=== PATIENT | male | born 1945 | race Caucasian/White ===

== ENCOUNTER 2021-05-08 16:20 | Inpatient (IN) ==
[2021-05-08] MEDS ORDERED: SODIUM CHLORIDE 0.9% 1000ML 1,000 ML IV ONE (20:36)
--- NOTE | 2021-05-08 20:38 | Emergency Department Note ---
Impression & Plan Pneumonia due to 2019 novel coronavirus, Hypoxia ED Provider Note NAME: JAH KEATING AGE: 76 SEX: M : 1945 ARRIVES VIA: Walk-IN INFORMANT: Patient ED PROVIDER(S): Reece Rosa DO CHIEF COMPLAINT: Falls, blurry vision and fevers HPI: Patient is a 69-year-old man who is legally blind and presents to the ER for decrease in his vision out of his right eye. He has been unable to see out of his left eye his entire life. He notes that with this he is feeling very weak. He had a fever this morning of 101. He did have a headache yesterday but has not had any since then. No headache currently. No chest pain or shortness of breath. notes that he does have a cough but he denies this. Denies any belly pain, nausea, vomiting, or diarrhea. He notes that he is not hungry and has not been eating. No dysuria, urgency, or frequency. No other exacerbating or remitting factors. ROS: See above HPI for pertinent positives & negatives. A total of 10 systems reviewed and were otherwise negative. PAST MEDICAL HISTORY:See Below PAST SURGICAL HISTORY:See Below FAMILY HISTORY:See Below SOCIAL HISTORY:See Below HOME MEDICATIONS:See Below ALLERGIES:See Below VITALS:See Below PHYSICAL EXAMINATION: GENERAL: Sitting up in bed, alert, chronically ill appearing, disheveled, non- toxic, intermittent cough EYE EXAM: Left eye opacified and slightly protruding. Right eye pupil is round and reactive OROPHARYNX: no exudate, no erythema, lips, buccal mucosa, and tongue normal and mucous membranes are moist NECK: supple, no nuchal rigidity, no adenopathy, non-tender LUNGS: Clear to auscultation. Normal chest wall mechanics HEART: no murmurs, S1 normal and S2 normal ABDOMEN: abdomen soft, non-tender, normo-active bowel sounds, no masses, no rebound or guarding. UPPER EXTREMITIES: upper extremities are grossly normal. LOWER EXTREMITIES: No pitting edema. NEURO EXAM: Normal sensorium, cranial nerves II-XII grossly intact, normal speech, no gross weakness of arms, no gross weakness of legs. MEDICAL DECISION MAKING: Patient is a 76-year-old male who presents the ER for above-stated complaint. IV was established blood work was obtained. Labs show no significant ptosis or knee. INR unremarkable. BMP the with a slightly elevated glucose. LFTs has been in part of her neck. Pro-Alvin was normal UA was added. Lyme was negative. Covid positive. Chest x-ray with infiltrates in the bases. With ambulation he drops down to 88 to 89%. Given fluids and Decadron. Discussed with the hospitalist admitted for further work-up. CT head was performed due to the decrease in vision. Triage Nursing notes reviewed. Limited review of prior medical records performed Vital Signs: reviewed and remarkable for no significant abnormalities Differential diagnosis: Differential diagnosis includes etiologies such as sepsis, UTI, pneumonia, metabolic, electrolyte abnormalities, cardiac sources, intracerebral event, toxicologic, neurological, as well as others were entertained. ER treatment provided: See below Diagnostics interpreted by me: ECG: Sinus rhythm rate of 93 Normal axis No PVCs QTC 445 Cardiac Monitoring: An order was placed for continuous cardiac monitoring. The monitor shows a rate of 92 with sinus rhythm. Laboratory studies: As stated above and show below. Imaging studies: CT head negative Chest x-ray with lower lobe infiltrates Consultation(s): Discussed with Carlyn Tomlinson for further evaluation Procedures: none Critical Care: None Past Med/Surg History Social History Smoking Status: Never smoker Feels Safe at Home: Yes Allergies Allergies Allergy/AdvReac Type Severity Reaction Status Date / Time No Known Allergies Allergy Unverified 05/08/21 20:41 Home Meds Home Medications Medication Instructions Recorded Confirmed brimonidine 0.2 % eye drops 1 drp OPR TID 05/08/21 05/08/21 dorzolamide 22.3 mg-timolol 6.8 1 drp OPR BID 05/08/21 05/08/21 mg/mL eye drops latanoprost 0.005 % eye drops 1 drp OPR HS 05/08/21 05/08/21 Results & Data (ED) Vital Signs Vital Signs - 24 hr 05/08/21 16:39 05/08/21 18:29 05/08/21 20:09 Temperature 37.0 C 37.1 C Temperature Source Skin Oral Pulse Rate 110 H 94 H Pulse Rate [Exercises] Pulse Rate [Right Finger] 93 H Pulse Rate from SpO2 Sensor Respiratory Rate 18 20 22 Respiratory Rate [Exercises] Respiratory Effort / Characteristics Non-Labored Respiratory Pattern Regular Blood Pressure 136/82 150/83 H Blood Pressure [Right Arm] 150/83 H Blood Pressure Mean 100 105 Blood Pressure Mean [Right Arm] 105 Blood Pressure Position [Right Arm] Lying Pulse Oximetry 93 92 Pulse Oximetry [Exercises] Oxygen Delivery Method Room Air Room Air Sepsis Recent Fever Within 48 Hours Yes Sepsis New/Unexplained Change in Mental Status No Sepsis Action Taken by Nursing No Action Required 05/08/21 20:32 05/08/21 20:36 05/08/21 20:45 Temperature 37.1 C Temperature Source Oral Pulse Rate 95 H 97 H 92 H Pulse Rate [Exercises] Pulse Rate [Right Finger] 94 H Pulse Rate from SpO2 Sensor Respiratory Rate 27 H 19 18 Respiratory Rate [Exercises] Respiratory Effort / Characteristics Non-Labored Respiratory Pattern Blood Pressure Blood Pressure [Right Arm] 152/84 H Blood Pressure Mean Blood Pressure Mean [Right Arm] 106 Blood Pressure Position [Right Arm] Pulse Oximetry 91 Pulse Oximetry [Exercises] Oxygen Delivery Method Room Air Sepsis Recent Fever Within 48 Hours Sepsis New/Unexplained Change in Mental Status Sepsis Action Taken by Nursing 05/08/21 21:00 05/08/21 21:06 05/08/21 21:15 Temperature Temperature Source Pulse Rate Pulse Rate [Exercises] Pulse Rate [Right Finger] Pulse Rate from SpO2 Sensor Respiratory Rate 24 19 Respiratory Rate [Exercises] Respiratory Effort / Characteristics Non-Labored Respiratory Pattern Blood Pressure Blood Pressure [Right Arm] Blood Pressure Mean Blood Pressure Mean [Right Arm] Blood Pressure Position [Right Arm] Pulse Oximetry 91 Pulse Oximetry [Exercises] Oxygen Delivery Method Room Air Sepsis Recent Fever Within 48 Hours Sepsis New/Unexplained Change in Mental Status Sepsis Action Taken by Nursing 05/08/21 21:30 05/08/21 21:45 05/08/21 22:00 Temperature Temperature Source Pulse Rate 99 H 97 H 92 H Pulse Rate [Exercises] Pulse Rate [Right Finger] Pulse Rate from SpO2 Sensor 99 H 96 H 89 Respiratory Rate 19 25 H 22 Respiratory Rate [Exercises] Respiratory Effort / Characteristics Non-Labored Respiratory Pattern Blood Pressure 142/78 H 153/75 H 141/63 H Blood Pressure [Right Arm] Blood Pressure Mean 99 101 89 Blood Pressure Mean [Right Arm] Blood Pressure Position [Right Arm] Pulse Oximetry 92 90 92 Pulse Oximetry [Exercises] Oxygen Delivery Method Room Air Sepsis Recent Fever Within 48 Hours Sepsis New/Unexplained Change in Mental Status Sepsis Action Taken by Nursing 05/08/21 22:15 05/08/21 22:30 05/08/21 22:35 Temperature Temperature Source Pulse Rate 91 H Pulse Rate [Exercises] Pulse Rate [Right Finger] Pulse Rate from SpO2 Sensor 92 H 96 H Respiratory Rate 23 Respiratory Rate [Exercises] Respiratory Effort / Characteristics Non-Labored Respiratory Pattern Blood Pressure 141/72 H Blood Pressure [Right Arm] Blood Pressure Mean 95 Blood Pressure Mean [Right Arm] Blood Pressure Position [Right Arm] Pulse Oximetry 91 92 Pulse Oximetry [Exercises] Oxygen Delivery Method Sepsis Recent Fever Within 48 Hours Sepsis New/Unexplained Change in Mental Status Sepsis Action Taken by Nursing 05/08/21 22:45 05/08/21 23:00 05/08/21 23:15 Temperature Temperature Source Pulse Rate 96 H 89 88 Pulse Rate [Exercises] Pulse Rate [Right Finger] Pulse Rate from SpO2 Sensor 96 H 90 86 Respiratory Rate 23 23 28 H Respiratory Rate [Exercises] Respiratory Effort / Characteristics Labored Respiratory Pattern Blood Pressure 148/90 H 145/114 H 163/71 H Blood Pressure [Right Arm] Blood Pressure Mean 109 124 101 Blood Pressure Mean [Right Arm] Blood Pressure Position [Right Arm] Pulse Oximetry 92 91 90 Pulse Oximetry [Exercises] Oxygen Delivery Method Sepsis Recent Fever Within 48 Hours Sepsis New/Unexplained Change in Mental Status Sepsis Action Taken by Nursing 05/08/21 23:30 05/08/21 23:45 Temperature Temperature Source Pulse Rate 89 Pulse Rate [Exercises] 114 H Pulse Rate [Right Finger] Pulse Rate from SpO2 Sensor 90 Respiratory Rate 31 H Respiratory Rate [Exercises] 22 Respiratory Effort / Characteristics Labored Respiratory Pattern Blood Pressure 147/84 H Blood Pressure [Right Arm] Blood Pressure Mean 105 Blood Pressure Mean [Right Arm] Blood Pressure Position [Right Arm] Pulse Oximetry 89 L Pulse Oximetry [Exercises] 89 L Oxygen Delivery Method Room Air Sepsis Recent Fever Within 48 Hours Sepsis New/Unexplained Change in Mental Status Sepsis Action Taken by Nursing Laboratory Data Result diagrams: 05/08/21 21:45 05/08/21 21:45 Lab Results 05/08/21 05/08/21 05/08/21 Range/Units 21:45 21:45 21:45 WBC 8.66 (4.8-10.8) K/uL RBC 5.01 (4.7-6.1) M/uL Hgb 15.6 (14.0-18.0) g/dL Hct 47.1 (42-52) % MCV 94.0 (80-100) fL MCH 31.1 (25-34) pg MCHC 33.1 (32-36) g/dL RDW Std Deviation 48.2 H (36.4-46.3) fL RDW Coeff of Татьяна 14.1 (11.5-14.5) % Plt Count 218 (130-400) K/uL MPV 9.2 (7.4-10.4) fL Immature Gran % (Auto) 0.1 % Neut % (Auto) 86.9 % Lymph % (Auto) 8.8 % [place] % (Auto) 4.2 % Eos % (Auto) 0.0 % Baso % (Auto) 0.0 % Neut # (Auto) 7.53 H (1.4-6.5) K/uL Lymph # (Auto) 0.76 L (1.2-3.4) K/uL [place] # (Auto) 0.36 (0.11-0.59) K/uL Eos # (Auto) 0.00 (0-0.5) K/uL Baso # (Auto) 0.00 (0-0.2) K/uL Immature Gran # (Auto) 0.01 (0.00-0.02) K/uL PT 11.5 (9.0-12.0) Seconds INR 1.1 (0.9-1.1) APTT 33.3 H (21.0-31.0) Seconds PTT Ratio 1.3 Sodium 139 (136-145) mmol/L Potassium 3.7 (3.5-5.1) mmol/L Chloride 105 (98-107) mmol/L Carbon Dioxide 24 (21-32) mmol/L Anion Gap 9.0 (3-11) BUN 29 H (7-18) mg/dl Creatinine 0.97 (0.6-1.4) mg/dl Est Cr Clr Drug Dosing 59.6 ml/min Est GFR ( Amer) 86.9 ml/min Est GFR (Non-Af Amer) 75.0 ml/min BUN/Creatinine Ratio 30.3 H (10-20) Glucose 124 H (70-99) mg/dl Lactate (0.4-2.0) mmol/L Calcium 9.0 (8.5-10.1) mg/dl Magnesium 2.2 (1.8-2.4) mg/dl Total Bilirubin 0.7 (0.2-1) mg/dl AST 20 (15-37) U/L ALT 10 L (12-78) U/L Alkaline Phosphatase 55 (45-117) U/L Troponin I < 0.015 (0-0.045) ng/ml Total Protein 7.1 (6.4-8.2) gm/dl Albumin 2.8 L (3.4-5.0) gm/dl Globulin 4.3 H (2.5-4.0) gm/dl Albumin/Globulin Ratio 0.7 L (0.9-2) Procalcitonin (0-0.5) ng/ml Urine Color Urine Appearance (Clear) Urine pH (4.5-7.5) Ur Specific [place] (1.000-1.030) Urine Protein (Negative) Urine Glucose (UA) (Negative) Urine Ketones (Negative) Urine Blood (Negative) Urine Nitrite (Negative) Urine Bilirubin (Negative) Urine Urobilinogen (Negative) Ur Leukocyte Esterase (Negative) Urine WBC (Auto) (0-5) /hpf Urine RBC (Auto) (0-4) /hpf U Hyaline Cast (Auto) (0-5) /lpf U Epithel Cells (Auto) (0-5) /lpf Urine Bacteria (Auto) (Negative) Granular Casts (0) /lpf Urine Mucus (None Prsent) Urine Yeast Lyme Disease IgG Ab (Negative) Lyme Disease IgM Ab (Negative) COVID-19 Eval Order SARS-CoV-2 (PCR) (Negative) 05/08/21 05/08/21 05/08/21 Range/Units 21:45 21:45 22:07 WBC (4.8-10.8) K/uL RBC (4.7-6.1) M/uL Hgb (14.0-18.0) g/dL Hct (42-52) % MCV (80-100) fL MCH (25-34) pg MCHC (32-36) g/dL RDW Std Deviation (36.4-46.3) fL RDW Coeff of Татьяна (11.5-14.5) % Plt Count (130-400) K/uL MPV (7.4-10.4) fL Immature Gran % (Auto) % Neut % (Auto) % Lymph % (Auto) % [place] % (Auto) % Eos % (Auto) % Baso % (Auto) % Neut # (Auto) (1.4-6.5) K/uL Lymph # (Auto) (1.2-3.4) K/uL [place] # (Auto) (0.11-0.59) K/uL Eos # (Auto) (0-0.5) K/uL Baso # (Auto) (0-0.2) K/uL Immature Gran # (Auto) (0.00-0.02) K/uL PT (9.0-12.0) Seconds INR (0.9-1.1) APTT (21.0-31.0) Seconds PTT Ratio Sodium (136-145) mmol/L Potassium (3.5-5.1) mmol/L Chloride (98-107) mmol/L Carbon Dioxide (21-32) mmol/L Anion Gap (3-11) BUN (7-18) mg/dl Creatinine (0.6-1.4) mg/dl Est Cr Clr Drug Dosing ml/min Est GFR ( Amer) ml/min Est GFR (Non-Af Amer) ml/min BUN/Creatinine Ratio (10-20) Glucose (70-99) mg/dl Lactate 1.8 (0.4-2.0) mmol/L Calcium (8.5-10.1) mg/dl Magnesium (1.8-2.4) mg/dl Total Bilirubin (0.2-1) mg/dl AST (15-37) U/L ALT (12-78) U/L Alkaline Phosphatase (45-117) U/L Troponin I (0-0.045) ng/ml Total Protein (6.4-8.2) gm/dl Albumin (3.4-5.0) gm/dl Globulin (2.5-4.0) gm/dl Albumin/Globulin Ratio (0.9-2) Procalcitonin 0.07 (0-0.5) ng/ml Urine Color Urine Appearance (Clear) Urine pH (4.5-7.5) Ur Specific [place] (1.000-1.030) Urine Protein (Negative) Urine Glucose (UA) (Negative) Urine Ketones (Negative) Urine Blood (Negative) Urine Nitrite (Negative) Urine Bilirubin (Negative) Urine Urobilinogen (Negative) Ur Leukocyte Esterase (Negative) Urine WBC (Auto) (0-5) /hpf Urine RBC (Auto) (0-4) /hpf U Hyaline Cast (Auto) (0-5) /lpf U Epithel Cells (Auto) (0-5) /lpf Urine Bacteria (Auto) (Negative) Granular Casts (0) /lpf Urine Mucus (None Prsent) Urine Yeast Lyme Disease IgG Ab Negative (Negative) Lyme Disease IgM Ab Negative (Negative) COVID-19 Eval Order Covid19 at [facility] SARS-CoV-2 (PCR) (Negative) 05/08/21 05/08/21 Range/Units 22:07 22:55 WBC (4.8-10.8) K/uL RBC (4.7-6.1) M/uL Hgb (14.0-18.0) g/dL Hct (42-52) % MCV (80-100) fL MCH (25-34) pg MCHC (32-36) g/dL RDW Std Deviation (36.4-46.3) fL RDW Coeff of Татяьна (11.5-14.5) % Plt Count (130-400) K/uL MPV (7.4-10.4) fL Immature Gran % (Auto) % Neut % (Auto) % Lymph % (Auto) % [place] % (Auto) % Eos % (Auto) % Baso % (Auto) % Neut # (Auto) (1.4-6.5) K/uL Lymph # (Auto) (1.2-3.4) K/uL [place] # (Auto) (0.11-0.59) K/uL Eos # (Auto) (0-0.5) K/uL Baso # (Auto) (0-0.2) K/uL Immature Gran # (Auto) (0.00-0.02) K/uL PT (9.0-12.0) Seconds INR (0.9-1.1) APTT (21.0-31.0) Seconds PTT Ratio Sodium (136-145) mmol/L Potassium (3.5-5.1) mmol/L Chloride (98-107) mmol/L Carbon Dioxide (21-32) mmol/L Anion Gap (3-11) BUN (7-18) mg/dl Creatinine (0.6-1.4) mg/dl Est Cr Clr Drug Dosing ml/min Est GFR ( Amer) ml/min Est GFR (Non-Af Amer) ml/min BUN/Creatinine Ratio (10-20) Glucose (70-99) mg/dl Lactate (0.4-2.0) mmol/L Calcium (8.5-10.1) mg/dl Magnesium (1.8-2.4) mg/dl Total Bilirubin (0.2-1) mg/dl AST (15-37) U/L ALT (12-78) U/L Alkaline Phosphatase (45-117) U/L Troponin I (0-0.045) ng/ml Total Protein (6.4-8.2) gm/dl Albumin (3.4-5.0) gm/dl Globulin (2.5-4.0) gm/dl Albumin/Globulin Ratio (0.9-2) Procalcitonin (0-0.5) ng/ml Urine Color Dark Yellow Urine Appearance Clear (Clear) Urine pH 5.5 (4.5-7.5) Ur Specific [place] 1.030 (1.000-1.030) Urine Protein 2+ H (Negative) Urine Glucose (UA) Negative (Negative) Urine Ketones 2+ H (Negative) Urine Blood Negative (Negative) Urine Nitrite Negative (Negative) Urine Bilirubin Negative (Negative) Urine Urobilinogen Negative (Negative) Ur Leukocyte Esterase Trace H (Negative) Urine WBC (Auto) 1-5 (0-5) /hpf Urine RBC (Auto) 0-4 (0-4) /hpf U Hyaline Cast (Auto) 5-10 H (0-5) /lpf U Epithel Cells (Auto) 20-30 H (0-5) /lpf Urine Bacteria (Auto) 1+ H (Negative) Granular Casts 1-5 H (0) /lpf Urine Mucus Present A (None Prsent) Urine Yeast Not Reportable Lyme Disease IgG Ab (Negative) Lyme Disease IgM Ab (Negative) COVID-19 Eval Order SARS-CoV-2 (PCR) POSITIVE A* (Negative) Administered Medications Discontinued Medications Dexamethasone Sodium Phosphate (DexamethasonePf 10 Mg/Ml Vial) 6 mg IV NOW ONE Stop: 05/08/21 23:47 Last Admin: 05/09/21 00:02 Dose: 6 mg Documented by: [id number] Sodium Chloride (Nss 1000ml) 1,000 mls @ 999 mls/hr IV .Q1H1M ONE Stop: 05/08/21 21:36 Last Infusion: 05/08/21 22:24 Dose: 0 mls/hr Documented by: [id number] Admin: 05/08/21 21:15 Dose: 999 mls/hr Documented by: [id number] Imaging Data Radiologist's Impression: Chest X-Ray 05/08/21 20:36 SINGLE VIEW CHEST CLINICAL HISTORY: Sepsis. FINDINGS: An AP, portable, upright chest radiograph is compared to study dated 09/05/2013. The heart is mildly enlarged noting atherosclerotic calcification of the thoracic aorta. The pulmonary vasculature is noncongested. Airspace opacities are present at both lung bases. No large pleural effusion or pneumothorax is identified. The skeletal structures are osteopenic. The bony thorax is grossly intact. IMPRESSION: 1. Bibasilar airspace opacities could represent linear scarring/atelectasis versus an infectious/inflammatory pneumonitis. Clinical correlation will be r equired. 2. Cardiomegaly without radiographic evidence of congestive failure. ACT 112: Negative or not required by law. Electronically signed by: Vicente Duval M.D. 05/08/2021 9:05 PM Discharge Plan Visit Data Chief Complaint: Fever Stated Complaint: FEVER, PULSE 101, O2 92-94, COUGH, WEAKNESS ED Provider: Reece Rosa Discharge Problem: Pneumonia due to 2019 novel coronavirus, Hypoxia Forms Stand Alone Forms: My [facility] Prescriptions Prescriptions: No Action latanoprost 0.005 % drops 1 drp OPR HS RF: 0 brimonidine 0.2 % drops 1 drp OPR TID RF: 0 dorzolamide-timolol 22.3-6.8 mg/mL drops 1 drp OPR BID RF: 0 Referrals Referrals: [facility] [Non-Staff] -
--- NOTE | 2021-05-08 21:06 | XRay Report ---
SINGLE VIEW CHEST CLINICAL HISTORY: Sepsis. FINDINGS: An AP, portable, upright chest radiograph is compared to study dated 09/05/2013. The heart i s mildly enlarged noting atherosclerotic calcification of the thoracic aorta. The pulmonary vasculatu re is noncongested. Airspace opacities are present at both lung bases. No large pleural effusion or p neumothorax is identified. The skeletal structures are osteopenic. The bony thorax is grossly intact. IMPRESSION: 1. Bibasilar airspace opacities could represent linear scarring/atelectasis versus an infectious/infl ammatory pneumonitis. Clinical correlation will be required. 2. Cardiomegaly without radiographic evidence of congestive failure. ACT 112: Negative or not required by law. Electronically signed by: Vicente Duval M.D. 05/08/2021 9:05 PM
[2021-05-08 21:58] LABS: Hematocrit (blood only) 47.1 % (42-52); Hemoglobin 15.6 g/dL (14.0-18.0); Immature Granulocytes # (auto) 0.01 K/uL (0.00-0.02); Immature Granulocytes % (auto) 0.1 %; Lymphocytes # (auto) 0.76 K/uL (1.2-3.4); Lymphocytes % (auto) 8.8 %; Mean Corpuscular Hemoglobin 31.1 pg (25-34); Mean Corpuscular Hgb Conc 33.1 g/dL (32-36); Mean Platelet Volume 9.2 fL (7.4-10.4); Monocytes # (auto) 0.36 K/uL (0.11-0.59); Monocytes % (auto) 4.2 %; Neutrophils # (auto) 7.53 K/uL (1.4-6.5); Neutrophils % (auto) 86.9 %; Platelet Count 218 K/uL (130-400); RDW Coefficient of Variation 14.1 % (11.5-14.5); RDW Standard Deviation 48.2 fL (36.4-46.3); Red Blood Count 5.01 M/uL (4.7-6.1); White Blood Count 8.66 K/uL (4.8-10.8)
[2021-05-08 22:08] LABS: INR 1.1 (0.9-1.1); Partial Thromboplastin Ratio 1.3; Partial Thromboplastin Time 33.3 Seconds (21.0-31.0); Prothrombin Time 11.5 Seconds (9.0-12.0)
[2021-05-08 22:17] LABS: Alanine Aminotransferase 10 U/L (12-78); Albumin Level 2.8 gm/dl (3.4-5.0); Aspartate Aminotransferase 20 U/L (15-37); BUN Creatinine Ratio 30.3 (10-20); Blood Urea Nitrogen 29 mg/dl (7-18); Carbon Dioxide 24 mmol/L (21-32); Chloride 105 mmol/L (98-107); Creatinine Clr Calc Pharmacy 59.6 ml/min; Est GFR (African American) 86.9 ml/min; Glucose 124 mg/dl (70-99); Magnesium 2.2 mg/dl (1.8-2.4); Potassium 3.7 mmol/L (3.5-5.1); Sodium 139 mmol/L (136-145)
[2021-05-08 22:21] LABS: Albumin Globulin Ratio 0.7 (0.9-2); Alkaline Phosphatase 55 U/L (45-117); Bilirubin,Total 0.7 mg/dl (0.2-1); Globulin 4.3 gm/dl (2.5-4.0); Total Protein 7.1 gm/dl (6.4-8.2); Troponin I < 0.015 ng/ml (0-0.045)
[2021-05-08 23:07] LABS: Appearance Urine Clear (Clear); Bilirubin Urine Negative (Negative); Blood Urine Negative (Negative); Color Urine Dark Yellow; Epithelial Cell Urine Auto 20-30 /lpf (0-5); Glucose Urine UA Negative (Negative); Ketones Urine 2+ (Negative); Leukocyte Esterase Urine Trace (Negative); Nitrite Urine Negative (Negative); Protein Urine 2+ (Negative); RBC Urine Automated 0-4 /hpf (0-4); Urobilinogen Urine Negative (Negative); pH Urine 5.5 (4.5-7.5)
[2021-05-08 23:10] LABS: Procalcitonin 0.07 ng/ml (0-0.5)
[2021-05-08 23:16] LABS: Lyme Ab IgG w/WB Rflx Negative (Negative); Lyme Ab IgM w/WB Rflx Negative (Negative)
[2021-05-08] MEDS ORDERED: dexAMETHasone**PF** 10 MG/ML VIAL IV ONE (23:46)
[2021-05-08 23:54] LABS: Mucus Urine Present (None Prsent)
[2021-05-08 23:56] LABS: Bacteria Urine Automated 1+ (Negative)
--- NOTE | 2021-05-09 00:39 | History & Physical Report ---
Date of Service May 09, 2021 Assessment & Plan (1) Pneumonia due to 2019 novel coronavirus: Plan: 76yo male presenting with Covid-19 infection, hypoxia to 89% on room air with ambulation. Patient denies chest pain, cough, SOB. He is not vaccinated against Covid-19. -Admit to medical floor. Maintain isolation precautions for Covid-19 -Supplemental O2 as needed to maintain saturations >94% -Check Ddimer, CRP, Ferritin and LDH -Dexamethasone 6mg IV daily - patient received first dose in ER -Lovenox 40mg BID -Tylenol PRN -Zofran PRN (2) Dehydration: Plan: Patient appears dehydrated both on laboratory findings as well as clinical exam. He was administered 1L NSS in ER -Continue IVF with LR at 125mL/hr x 2 additional liters. Cautious resuscitation in patient with Covid. Monitor O2 requirements and evidence of volume overload -Repeat chemistry in AM (3) Blindness: Plan: Chronic. Patient reports worsening of his vision several days ago. CT Head is unremarkable -Continue drops, Brimonide, Dorzolamide-Timolol and Latanoprost Plan: F/E/N - LR at 125mL/hr x 2 liters, repeat chemistry in AM, regular diet as tolerated - encourage PO intake as tolerated Ppx - Lovenox 40 mg BID Code - Full Dispo - Admit to medical/Covid unit History of Present Illness Chief Complaint: fever, weakness Primary Care Provider: Clark Singh MD [place] is a 76yo male presenting with 1 week of weakness, poor oral intake. endorses fever at home as well as a cough; although patient denies cough. Patient reports that he has no appetite - he has not eaten or drank anything for 1 week. states that he is very weak and having difficulty ambulating in the home. He had two possible falls (one 3 days ago and one 2 days ago). states that she heard a loud bang and found the patient on the floor. She also reports that he has had episodes of mild confusion over the last week. He reports a severe headache several days ago associated with decreased vision in his right eye. Patient is legally blind. No additional complaints at this time Patient tested POSITIVE for Covid-19 in the ER. He is not vaccinated against Covid-19. ER Course: 1L NSS, Dexamethasone 6mg IV, supplemental O2 Allergies Allergy/AdvReac Type Severity Reaction Status Date / Time No Known Allergies Allergy Unverified 05/08/21 20:41 Home Medications Medication Instructions Recorded Confirmed Type brimonidine 0.2 % eye drops 1 drp OPR TID 05/08/21 05/08/21 History dorzolamide 22.3 mg-timolol 6.8 1 drp OPR BID 05/08/21 05/08/21 History mg/mL eye drops latanoprost 0.005 % eye drops 1 drp OPR HS 05/08/21 05/08/21 History Past Med/Surg History Medical History (Updated 05/09/21 @ 00:53 by Tiffanie Tomlinson DO) Blindness Family History Other No significant family history Social History (Updated 05/09/21 @ 00:48 by Tiffanie Tomlinson DO) Smoking Status: Never smoker Hx Alcohol Use: No Hx Substance Use: No Feels Safe at Home: Yes Review of Systems Review of Systems: All systems reviewed & are unremarkable except as noted in HPI & below + fever +fatigue +diffuse weakness +poor oral intake Physical Exam Physical Exam: General: frail, elderly male resting comfortably in bed, NAD, non-toxic in appearance, answers questions appropriately and follows commands Skin: warm, dry, intact, no rashes or lesions HEENT: NC/AT, external ear normal to inspection and nontender, nares patent, dry lips and mucus membranes, dentition intact, no oropharyngeal lesions, neck supple, trachea midline, no LAD, no thyromegaly, no JVD Heart: +S1/S2, regular, no m/r/g Lungs: equal air entry bilaterally, no rales/rhonchi/wheezes Abd: +BS, soft, NT/ND, no masses/organomegaly/ascites Ext: warm, 2+ pulses in UE/LE bilaterally, no clubbing/cyanosis or edema Neuro: grossly nonfocal Results & Data Results & Data ([place]) Vital Signs (Past 12 Hours) Vital Signs Temp Pulse Pulse Pulse Resp Resp BP 05/08/21 23:45 114 H 22 05/08/21 23:30 89 31 H 147/84 H 05/08/21 23:15 88 28 H 163/71 H 05/08/21 23:00 89 23 145/114 H 05/08/21 22:45 96 H 23 148/90 H 05/08/21 22:35 05/08/21 22:15 91 H 23 141/72 H 05/08/21 22:00 92 H 22 141/63 H 05/08/21 21:45 97 H 25 H 153/75 H 05/08/21 21:30 99 H 19 142/78 H 05/08/21 21:15 19 05/08/21 21:06 05/08/21 21:00 24 05/08/21 20:45 92 H 18 05/08/21 20:36 37.1 C 97 H 94 H 19 05/08/21 20:32 95 H 27 H 05/08/21 20:09 94 H 22 150/83 H 05/08/21 18:29 37.1 C 93 H 20 05/08/21 16:39 37.0 C 110 H 18 136/82 BP Pulse Ox Pulse Ox 05/08/21 23:45 89 L 05/08/21 23:30 89 L 05/08/21 23:15 90 05/08/21 23:00 91 05/08/21 22:45 92 05/08/21 22:35 92 05/08/21 22:15 91 05/08/21 22:00 92 05/08/21 21:45 90 05/08/21 21:30 92 05/08/21 21:15 05/08/21 21:06 91 05/08/21 21:00 05/08/21 20:45 05/08/21 20:36 152/84 H 91 05/08/21 20:32 05/08/21 20:09 05/08/21 18:29 150/83 H 92 05/08/21 16:39 93 Laboratory Results Laboratory Results WBC 8.66 K/uL (4.8-10.8) 05/08/21 21:45 RBC 5.01 M/uL (4.7-6.1) 05/08/21 21:45 Hgb 15.6 g/dL (14.0-18.0) 05/08/21 21:45 Hct 47.1 % (42-52) 05/08/21 21:45 MCV 94.0 fL (80-100) 05/08/21 21:45 MCH 31.1 pg (25-34) 05/08/21 21:45 MCHC 33.1 g/dL (32-36) 05/08/21 21:45 RDW Std Deviation 48.2 fL (36.4-46.3) H 05/08/21 21:45 RDW Coeff of Татьяна 14.1 % (11.5-14.5) 05/08/21 21:45 Plt Count 218 K/uL (130-400) 05/08/21 21:45 MPV 9.2 fL (7.4-10.4) 05/08/21 21:45 Immature Gran % (Auto) 0.1 % 05/08/21 21:45 Neut % (Auto) 86.9 % 05/08/21 21:45 Lymph % (Auto) 8.8 % 05/08/21 21:45 [place] % (Auto) 4.2 % 05/08/21 21:45 Eos % (Auto) 0.0 % 05/08/21 21:45 Baso % (Auto) 0.0 % 05/08/21 21:45 Neut # (Auto) 7.53 K/uL (1.4-6.5) H 05/08/21 21:45 Lymph # (Auto) 0.76 K/uL (1.2-3.4) L 05/08/21 21:45 [place] # (Auto) 0.36 K/uL (0.11-0.59) 05/08/21 21:45 Eos # (Auto) 0.00 K/uL (0-0.5) 05/08/21 21:45 Baso # (Auto) 0.00 K/uL (0-0.2) 05/08/21 21:45 Immature Gran # (Auto) 0.01 K/uL (0.00-0.02) 05/08/21 21:45 PT 11.5 Seconds (9.0-12.0) 05/08/21 21:45 INR 1.1 (0.9-1.1) 05/08/21 21:45 APTT 33.3 Seconds (21.0-31.0) H 05/08/21 21:45 PTT Ratio 1.3 05/08/21 21:45 Sodium 139 mmol/L (136-145) 05/08/21 21:45 Potassium 3.7 mmol/L (3.5-5.1) 05/08/21 21:45 Chloride 105 mmol/L (98-107) 05/08/21 21:45 Carbon Dioxide 24 mmol/L (21-32) 05/08/21 21:45 Anion Gap 9.0 (3-11) 05/08/21 21:45 BUN 29 mg/dl (7-18) H 05/08/21 21:45 Creatinine 0.97 mg/dl (0.6-1.4) 05/08/21 21:45 Est Cr Clr Drug Dosing 59.6 ml/min 05/08/21 21:45 Est GFR ( Amer) 86.9 ml/min 05/08/21 21:45 Est GFR (Non-Af Amer) 75.0 ml/min 05/08/21 21:45 BUN/Creatinine Ratio 30.3 (10-20) H 05/08/21 21:45 Glucose 124 mg/dl (70-99) H 05/08/21 21:45 Lactate 1.8 mmol/L (0.4-2.0) 05/08/21 21:45 Calcium 9.0 mg/dl (8.5-10.1) 05/08/21 21:45 Magnesium 2.2 mg/dl (1.8-2.4) 05/08/21 21:45 Total Bilirubin 0.7 mg/dl (0.2-1) 05/08/21 21:45 AST 20 U/L (15-37) 05/08/21 21:45 ALT 10 U/L (12-78) L 05/08/21 21:45 Alkaline Phosphatase 55 U/L (45-117) 05/08/21 21:45 Troponin I < 0.015 ng/ml (0-0.045) 05/08/21 21:45 Total Protein 7.1 gm/dl (6.4-8.2) 05/08/21 21:45 Albumin 2.8 gm/dl (3.4-5.0) L 05/08/21 21:45 Globulin 4.3 gm/dl (2.5-4.0) H 05/08/21 21:45 Albumin/Globulin Ratio 0.7 (0.9-2) L 05/08/21 21:45 Procalcitonin 0.07 ng/ml (0-0.5) 05/08/21 21:45 Urine Color Dark Yellow 05/08/21 22:55 Urine Appearance Clear (Clear) 05/08/21 22:55 Urine pH 5.5 (4.5-7.5) 05/08/21 22:55 Ur Specific Novi 1.030 (1.000-1.030) 05/08/21 22:55 Urine Protein 2+ (Negative) H 05/08/21 22:55 Urine Glucose (UA) Negative (Negative) 05/08/21 22:55 Urine Ketones 2+ (Negative) H 05/08/21 22:55 Urine Blood Negative (Negative) 05/08/21 22:55 Urine Nitrite Negative (Negative) 05/08/21 22:55 Urine Bilirubin Negative (Negative) 05/08/21 22:55 Urine Urobilinogen Negative (Negative) 05/08/21 22:55 Ur Leukocyte Esterase Trace (Negative) H 05/08/21 22:55 Urine WBC (Auto) 1-5 /hpf (0-5) 05/08/21 22:55 Urine RBC (Auto) 0-4 /hpf (0-4) 05/08/21 22:55 U Hyaline Cast (Auto) 5-10 /lpf (0-5) H 05/08/21 22:55 U Epithel Cells (Auto) 20-30 /lpf (0-5) H 05/08/21 22:55 Urine Bacteria (Auto) 1+ (Negative) H 05/08/21 22:55 Granular Casts 1-5 /lpf (0) H 05/08/21 22:55 Urine Mucus Present (None Prsent) A 05/08/21 22:55 Urine Yeast Not Reportable 05/08/21 22:55 Lyme Disease IgG Ab Negative (Negative) 05/08/21 21:45 Lyme Disease IgM Ab Negative (Negative) 05/08/21 21:45 COVID-19 Eval Order Covid19 at [facility] 05/08/21 22:07 SARS-CoV-2 (PCR) POSITIVE (Negative) A* 05/08/21 22:07 Impressions Chest X-Ray 05/08/21 20:36 SINGLE VIEW CHEST CLINICAL HISTORY: Sepsis. FINDINGS: An AP, portable, upright chest radiograph is compared to study dated 09/05/2013. The heart is mildly enlarged noting atherosclerotic calcification of the thoracic aorta. The pulmonary vasculature is noncongested. Airspace opacities are present at both lung bases. No large pleural effusion or pneumothorax is identified. The skeletal structures are osteopenic. The bony thorax is grossly intact. IMPRESSION: 1. Bibasilar airspace opacities could represent linear scarring/atelectasis versus an infectious/inflammatory pneumonitis. Clinical correlation will be required. 2. Cardiomegaly without radiographic evidence of congestive failure. ACT 112: Negative or not required by law. Electronically signed by: Vicente Duval M.D. 05/08/2021 9:05 PM Code Status & VTE Plan VTE Prophylaxis Plan VTE Prophylaxis will be ordered: Yes PG Care Time/CCT Total # of Minutes Spent Total Time Spent with Patient: Total time spent is greater than 50% in coordination of care (as documented) at patient's floor/unit and/or counseling patient: Coding Level of Care Code 29131 Initial Inpt Care Lvl 2 Diagnoses Pneumonia due to 2019 novel coronavirus U07.1; J12.82 Blindness H54.7 Dehydration E86.0
[2021-05-09] MEDS ORDERED: ACETAMINOPHEN 325 MG TAB PO PRN (02:45)
[2021-05-09] MEDS ORDERED: ONDANSETRON INJ 2 MG/ML 2 ML VIAL IV PRN (02:45)
[2021-05-09] MEDS: LACTATED RINGER'S 1,000 ML IV SCH ×2 (03:12→11:25)
[2021-05-09 03:58] LABS: C Reactive Protein 12.5 mg/dl (0-0.29); Ferritin 994.6 ng/ml (8-388); Phosphorus 2.3 mg/dl (2.5-4.9)
[2021-05-09 04:58] LABS: D Dimer 950 ug/L FEU (0-500)
[2021-05-09] MEDS: ENOXAPARIN INJ 40 MG/0.4 ML SYR SQ SCH ×3 (05:27→20:48)
--- NOTE | 2021-05-09 06:38 | CT Scan Report ---
CT head/brain wo con CLINICAL HISTORY: 76 years-old Male with fall confusioon. Acute head injury status post fall TECHNIQUE: Multiple axial CT images of the head were obtained without contrast. A dose lowering tech nique was utilized adhering to the principles of ALARA. CT DOSE: 746.71 mGy.cm COMPARISON: None. FINDINGS: No acute intracranial hemorrhage, midline shift, intracranial mass, hydrocephalus, territorial ischem ia or abnormal extra-axial collection. The calvarium is intact. Abnormal oblong morphology of the left globe with increased AP dimension. A normal left-sided lens is not identified. There is a calcified 7 mm structure within the anteroinferi or aspect of the left globe. Prior right-sided cataract repair. The paranasal sinuses, mastoid air ce lls, and middle ear cavities are clear. IMPRESSION: 1. No acute intracranial abnormality. 2. Abnormal appearance of the left globe, possibly on a chronic basis. ACT 112: Negative or not required by law. The above report was generated using voice recognition software. It may contain grammatical, syntax o r spelling errors. Electronically signed by: Rubén Robles M.D. 05/09/2021 6:37 AM
[2021-05-09] MEDS: BRIMONIDINE TARTRATE 0.2% 5ML OPR SCH ×3 (08:44→20:48)
[2021-05-09] MEDS: DORZOLAMIDE/TIMOLOL 22.3/6.8MG/ML 10 ML BTL OPR SCH ×2 (08:44→20:48)
[2021-05-09] MEDS: dexAMETHasone 6 MG in SYRINGE 0 ML IV SCH (10:06)
--- NOTE | 2021-05-09 16:56 | Electrocardiogram Report ---
Test Reason : Blood Pressure : / mmHG Vent. Rate : 093 BPM Atrial Rate : 093 BPM P-R Int : 138 ms QRS Dur : 092 ms QT Int : 358 ms P-R-T Axes : 065 065 043 degrees QTc Int : 445 ms Poor data quality, interpretation may be adversely affected Normal sinus rhythm Normal ECG No previous ECGs available Confirmed by Fernando Mcmanus ([id number]) on 05/09/2021 4:55:59 PM Referred By: Clark Singh Confirmed By:Fernando Mcmanus
--- NOTE | 2021-05-09 17:47 | History & Physical Bridge Note ---
Date of Service May 09, 2021 History & Physical Bridge Note I have examined the patient, reviewed the History & Physical and in the interval since the performance of the History & Physical I have noted the following changes of clinical significance: Patient reports feeling fairly well, he was weaned off oxygen today. He reports that the vision in his right eye became significantly worse and was associated with some pain for 1 day since 04/27/2021. He reports that he goes through periods where his right eye vision is decreased and it usually comes back. He does think that this is because of noncompliance with some of his eyedrops. 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 He denies any cough or shortness of breath, no chest pain, no abdominal pains or nausea. He is eating and drinking. He has not had a fever today and feels a little bit stronger. He reports that he did not have falls at home, simply that he got lost in his home because he has no vision currently and sat himself down on the ground to try to crawl around as he felt more comfortable that way. Vitals reviewed Gen: AAOx3, NAD HEENT: Left globe significantly oblong and with cloudy pupil and iris, right eye with pupil with brisk reaction to light, extraocular muscles intact, normal conjunctiva and lids and lashes, no erythema, vision is only to fingers in front of the eye and he can see light CV: RRR no mgr nl S1S2 Pulm: CTAB no wcr Abd: +BS soft NT ND no masses or hernias Ext: No edema, 2+ DP pulses Skin: No rashes, warm/dry Neuro: Full strength throughout 76-year-old male here with Covid-19 pneumonia, acute respiratory failure with hypoxia, and acute on chronic vision loss in the right eye likely not related to Covid -Continue current plan with dexamethasone, supplemental O2 as needed keep pulse ox greater than 92% Finish out this liter of lactated Ringer's Follow labs in the morning PT/OT consulted given significant weakness and questionable falls at home
[2021-05-09] MEDS: LATANOPROST 0.005% OP SOLN 2.5 ML BTL OPR SCH (20:46)
[2021-05-10 06:06] LABS: Hematocrit (blood only) 42.3 % (42-52); Hemoglobin 14.4 g/dL (14.0-18.0); Mean Corpuscular Hemoglobin 30.6 pg (25-34); Mean Platelet Volume 9.4 fL (7.4-10.4); Platelet Count 254 K/uL (130-400); RDW Coefficient of Variation 13.7 % (11.5-14.5); RDW Standard Deviation 45.8 fL (36.4-46.3); White Blood Count 16.27 K/uL (4.8-10.8)
[2021-05-10 06:47] LABS: Basophils # (auto) 0.02 K/uL (0-0.2); Basophils % (auto) 0.1 %; Immature Granulocytes # (auto) 0.08 K/uL (0.00-0.02); Immature Granulocytes % (auto) 0.5 %; Lymphocytes # (auto) 0.74 K/uL (1.2-3.4); Lymphocytes % (auto) 4.5 %; Monocytes # (auto) 0.47 K/uL (0.11-0.59); Monocytes % (auto) 2.9 %; Neutrophils # (auto) 14.96 K/uL (1.4-6.5); RBC Morphology Unremarkable
[2021-05-10 06:53] LABS: BUN Creatinine Ratio 29.2 (10-20); Calcium 8.5 mg/dl (8.5-10.1); Creatinine Clr Calc Pharmacy 71.4 ml/min; Est GFR (African American) 99.4 ml/min; Est GFR (Non-African American) 85.7 ml/min; Potassium 3.8 mmol/L (3.5-5.1)
[2021-05-10] MEDS: ENOXAPARIN INJ 40 MG/0.4 ML SYR SQ SCH ×2 (08:50→21:03)
[2021-05-10] MEDS: dexAMETHasone 6 MG in SYRINGE 0 ML IV SCH (08:50)
[2021-05-10] MEDS: BRIMONIDINE TARTRATE 0.2% 5ML OPR SCH ×3 (08:50→21:02)
[2021-05-10] MEDS: DORZOLAMIDE/TIMOLOL 22.3/6.8MG/ML 10 ML BTL OPR SCH ×2 (08:51→21:01)
--- NOTE | 2021-05-10 16:55 | Hospitalist Progress Note ---
Date of Service May 10, 2021 Assessment & Plan (1) Pneumonia due to 2019 novel coronavirus: Plan: 76yo male presenting with Covid-19 infection, hypoxia to 89% on room air with ambulation. Patient denies chest pain, cough, SOB. He is not vaccinated against Covid-19. He does have bibasilar minimal infiltrates on chest x-ray consistent with viral pneumonia Remains afebrile, hemodynamically stable, requiring 2 L nasal cannula today He is eating and drinking well, no longer dehydrated, and is ambulating with physical therapy, feeling stronger -Add on incentive spirometry -Continue supplemental O2 as needed to maintain saturations >92% and wean off as tolerated-hopefully he will not need home oxygen -Continue dexamethasone 6mg IV daily and convert to p.o. on discharge for 10-day course -Continue Lovenox 40mg BID for DVT prophylaxis and plan to send home with Xarelto 10 mg daily x35 days as per discussion with patient -Tylenol PRN -Zofran PRN (2) Acute respiratory failure with hypoxia: Plan: As above May need a two-step walk test but he prefers to not require oxygen upon discha rge to home (3) Generalized weakness: Plan: Secondary to Covid-19 and febrile illness Much improved, ambulated with PT today PT and OT recommend stable for discharge to home with 24/7 care (4) Dehydration: Plan: Patient appears dehydrated both on laboratory findings as well as clinical exam upon admission. 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 Varghese of ophthalmology He does report significant worsening of his right eye vision since 04/27/2021. He attributes this to the fact that he has been fairly noncompliant with his eyedrops but has since restarted them. 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 dumper bulk system, but he asked me not to as he has been through this many times and feels that his vision will improve with time-he wishes to follow-up with ophthalmology as an outpatient Supportive care and assistance by caregivers here in the hospital to ensure he does not have any falls related to poor vision Plan: DVT Ppx - Lovenox 40 mg BID and plan to send home on Xarelto 10 mg daily x35 days Code - Full Dispo -continued stay on medical unit of Covid unit, but discharged home the next 1 to 2 days especially if can be weaned off oxygen Admission and Anticipated Discharge Date Admission Date: May 09, 2021 Subjective Feels somewhat better at times today and somewhat worse, but he is not able to be more specific. Denies shortness of breath but is requiring 4 L of nasal cannula overnight down to 2 L nasal cannula in the morning. He is now working on using incentive spirometry. He denies any other problems. He did ambulate with physical therapy today and worked with occupational therapy as well and he felt good about that. He denies chest pains or shortness of breath. Review of Systems Review of Systems: All systems reviewed & are unremarkable except as noted in HPI & below Physical Exam Constitutional: WD/WN, vitals as above Eyes: Left globe significantly oblong and with cloudy pupil and iris, right eye with pupil with brisk reaction to light, extraocular muscles intact, normal conjunctiva and lids and lashes, no erythema, vision is only to fingers in front of the eye and he can see light Neck: trachea midline, no thyromegaly Respiratory: normal respiratory effort, lungs clear to auscultation Cardiovascular: RRR, no murmur, no edema Chest (Breasts): Chest: normal inspection of chest Gastrointestinal (Abdomen): normal bowel sounds, soft, nontender, no hepatosplenomegaly Musculoskeletal: Extremities: extremities normal to inspection; no cyanosis and no clubbing Skin: no rashes, warm and dry Neurologic: moves all extremities and awake; no focal motor deficits Psychiatric: A+Ox3, euthymic affect Lymphatic: no lymphedema Results & Data Results & Data ([facility]) Vital Signs (Past 12 Hours) Vital Signs Temp Pulse Resp BP Pulse Ox Pulse Ox Pulse Ox 05/10/21 16:08 36.9 C 79 18 127/72 92 05/10/21 12:07 37.5 C 88 22 145/77 H 93 05/10/21 09:55 91 90 05/10/21 08:09 36.8 C 79 20 144/87 H 94 Pulse Ox 05/10/21 16:08 05/10/21 12:07 05/10/21 09:55 89 L 05/10/21 08:09 Laboratory Results 05/10/21 05:25 05/10/21 05:25 PG Care Time/CCT Total # of Minutes Spent Total Time Spent with Patient: Total time spent is greater than 50% in c oordination of care (as documented) at patient's floor/unit and/or counseling patient: Coding Level of Care Code 56336 Subseq Hosp Care Lvl 2 Diagnoses Pneumonia due to 2019 novel coronavirus U07.1; J12.82 Dehydration E86.0 Blindness H54.7 Acute respiratory failure with hypoxia J96.01 Generalized weakness R53.1
[2021-05-10] MEDS: LATANOPROST 0.005% OP SOLN 2.5 ML BTL OPR SCH (21:00)
[2021-05-11] MEDS: dexAMETHasone 6 MG in SYRINGE 0 ML IV SCH (09:57)
[2021-05-11] MEDS: DORZOLAMIDE/TIMOLOL 22.3/6.8MG/ML 10 ML BTL OPR SCH ×2 (09:57→22:05)
[2021-05-11] MEDS: BRIMONIDINE TARTRATE 0.2% 5ML OPR SCH ×3 (09:57→22:05)
[2021-05-11] MEDS: ENOXAPARIN INJ 40 MG/0.4 ML SYR SQ SCH ×2 (09:58→22:07)
[2021-05-11] MEDS: LATANOPROST 0.005% OP SOLN 2.5 ML BTL OPR SCH (22:04)
--- NOTE | 2021-05-11 23:12 | Hospitalist Progress Note ---
Date of Service May 11, 2021 Assessment & Plan (1) Pneumonia due to 2019 novel coronavirus: Plan: 76yo male presenting with Covid-19 infection, hypoxia to 89% on room air with ambulation upon arrival fall. Patient denies chest pain, cough, SOB. He is not vaccinated against Covid-19. He does have bibasilar minimal infiltrates on chest x-ray consistent with viral pneumonia Remains afebrile, hemodynamically stable, however his oxygen requirement has jumped up quite a bit on 05/11-now requiring 6 L to keep pulse ox 91% He is eating and drinking well, no longer dehydrated, and is ambulating with physical therapy, feeling stronger -Continue on incentive spirometry -Encouraged prone positioning -Continue supplemental O2 as needed to maintain saturations >92% and wean off as tolerated-if worsens to greater than 10 L, would switch to high flow nasal xochitl herman -Continue dexamethasone 6mg IV daily for 10-day course -Continue Lovenox 40mg BID for DVT prophylaxis and plan to send home with Xarelto 10 mg daily x35 days as per discussion with patient -Tylenol PRN -Zofran PRN -He is not a candidate for tocilizumab or Remdesivir (2) Acute respiratory failure with hypoxia: Plan: As above, worsening today (3) Generalized weakness: Plan: Secondary to Covid-19 and febrile illness Much improved, ambulated with PT, feeling stronger PT and OT recommend stable for discharge to home with 24/7 care (4) Dehydration: Plan: Patient appears dehydrated both on laboratory findings as well as clinical exam upon admission. 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 Varghese of ophthalmology He does report significant worsening of his right eye vision since 04/27/2021. He attributes this to the fact that he has been fairly noncompliant with his eyedrops but has since restarted them. 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, but he asked me not to as he has been through this many times and feels that his vision will improve with time-he wishes to follow-up with ophthalmology as an outpatient Supportive care and assistance by caregivers here in the hospital to ensure he does not have any falls related to poor vision Plan: DVT Ppx - Lovenox 40 mg BID and plan to send home on Xarelto 10 mg daily x35 days Code - Full Dispo -continued stay on medical unit of Covid unit, now with worsening hypoxia, discharge may not be for several more days Discussed his care with his on the phone Admission and Anticipated Discharge Date Admission Date: May 09, 2021 Subjective Patient denies any issues today, however his oxygen requirement has gone up significantly to 6 L. As per nursing after education, he was able to prone and is using his incentive spirometer sporadically When I asked the patient how long he has had Covid symptoms for, he starts talking about how his nose has felt dry for many months. I am not sure if he is confused or if he truly believes that his Covid has been going on for months. I talked to his on the phone in the room on speaker phone with the patient and she confirms that his symptoms started about 7 days prior to admission Review of Systems Review of Systems: All systems reviewed & are unremarkable except as noted in HPI & below Physical Exam Constitutional: WD/WN, vitals as above Eyes: Lagrange shaped left eye, right eye normal except decreased vision Neck: trachea midline, no thyromegaly Respiratory: normal respiratory effort Auscultation: + crackles (Bibasilar) Cardiovascular: RRR, no murmur, no edema Chest (Breasts): Chest: normal inspection of chest Gastrointestinal (Abdomen): normal bowel sounds, soft, nontender, no hepatosplenomegaly Musculoskeletal: Extremities: extremities normal to inspection; no cyanosis and no clubbing Skin: no rashes, warm and dry Neurologic: moves all extremities and awake; no focal motor deficits Lymphatic: no lymphedema Results & Data Results & Data ([facility]) Vital Signs (Past 12 Hours) Vital Signs Temp Pulse Resp BP Pulse Ox 05/11/21 21:29 36.6 C 60 16 127/77 91 PG Care Time/CCT Total # of Minutes Spent Total Time Spent with Patient: Total time spent is greater than 50% in coordination of care (as documented) at patient's floor/unit and/or counseling patient: Coding Level of Care Code 11654 Subseq Hosp Care Lvl 2 Diagnoses Pneumonia due to 2019 novel coronavirus U07.1; J12.82 Acute respiratory failure with hypoxia J96.01 Generalized weakness R53.1 Dehydration E86.0 Blindness H54.7
[2021-05-12 07:06] LABS: Creatinine Clr Calc Pharmacy 80.3 ml/min; Est GFR (African American) 104.3 ml/min
--- NOTE | 2021-05-12 08:31 | XRay Report ---
XR chest 1V portable CLINICAL HISTORY: Worsening hypoxia, Covid COMPARISON STUDY: Chest radiograph May 08, 2021. FINDINGS: Lung volumes are normal. Cardiac size is stable. There is no pneumothorax or pleural effusi on. Bilateral airspace opacities have slightly progressed. Several of these are linear in configurati on. IMPRESSION: Slight increase in bilateral airspace opacities. ACT 112: Negative or not required by law. Electronically signed by: Zechariah Granger M.D. 05/12/2021 8:30 AM
[2021-05-12] MEDS: BRIMONIDINE TARTRATE 0.2% 5ML OPR SCH ×3 (08:46→20:39)
[2021-05-12] MEDS: DORZOLAMIDE/TIMOLOL 22.3/6.8MG/ML 10 ML BTL OPR SCH ×2 (08:47→20:40)
[2021-05-12] MEDS: dexAMETHasone 6 MG in SYRINGE 0 ML IV SCH (08:47)
[2021-05-12] MEDS: ENOXAPARIN INJ 40 MG/0.4 ML SYR SQ SCH ×2 (08:47→20:40)
[2021-05-12] MEDS: LATANOPROST 0.005% OP SOLN 2.5 ML BTL OPR SCH (20:40)
--- NOTE | 2021-05-12 22:43 | Hospitalist Progress Note ---
Date of Service May 12, 2021 Assessment & Plan (1) Pneumonia due to 2019 novel coronavirus: Plan: 76yo male presenting with Covid-19 infection, hypoxia to 89% on room air with ambulation upon arrival. Patient denies chest pain, cough, SOB. He is not vaccinated against Covid-19. He does have bibasilar minimal infiltrates on chest x-ray upon admission consistent with viral pneumonia Remains afebrile, hemodynamically stable, however his oxygen requirement has jumped up quite a bit on 05/11-now continues to be requiring 6 L but pulse ox is improved today at 94% He is eating and drinking well, no longer dehydrated, and is ambulating with physical therapy, feeling stronger -Continue on incentive spirometry -Encouraged prone positioning -Continue supplemental O2 as needed to maintain saturations >92% and wean off as tolerated-if worsens to greater than 10 L, would switch to high flow nasal cannula -Continue dexamethasone 6mg IV daily for 10-day course -Continue Lovenox 40mg BID for DVT prophylaxis and plan to send home with Xarelto 10 mg daily x35 days as per discussion with patient -Tylenol PRN -Zofran PRN -He is not a candidate for tocilizumab or Remdesivir (2) Acute respiratory failure with hypoxia: Plan: As above (3) Generalized weakness: Plan: Secondary to Covid-19 and febrile illness Much improved, ambulated with PT, feeling stronger PT and OT recommend stable for discharge to home with 24/ care (4) Dehydration: Plan: Patient appears dehydrated both on laboratory findings as well as clinical exam upon admission. 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 Varghese of ophthalmology He does report significant worsening of his right eye vision since 04/27/2021. He attributes this to the fact that he has been fairly noncompliant with his eyedrops but has since restarted them. 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 customs compliance manager, but he asked me not to as he has been through this many times and feels that his vision will improve with time-he wishes to follow-up with ophthalmology as an outpatient Supportive care and assistance by caregivers here in the hospital to ensure he does not have any falls related to poor vision Plan: DVT Ppx - Lovenox 40 mg BID and plan to send home on Xarelto 10 mg daily x35 days as long as no issues with bleeding Code - Full Dispo -continued stay on medical unit of Covid unit, due to hypoxia, discharge may not be for several more days Discussed his care with his on the phone on 05/11 Admission and Anticipated Discharge Date Admission Date: May 09, 2021 Subjective Hent reports feeling improved today. He denies shortness of breath but remains on 6 L nasal cannula. His oxygen saturation however is improved from previous. He denies any other problems. He is eating and drinking. Review of Systems Review of Systems: All systems reviewed & are unremarkable except as noted in HPI & below Physical Exam Constitutional: WD/WN, vitals as above Eyes: [place] shaped left eye with cloudy iris Neck: trachea midline, no thyromegaly Respiratory: normal respiratory effort Auscultation: + crackles (Bibasilar) Cardiovascular: RRR, no murmur, no edema Chest (Breasts): Chest: normal inspection of chest Gastrointestinal (Abdomen): normal bowel sounds, soft, nontender, no hepatosplenomegaly Musculoskeletal: Extremities: extremities normal to inspection; no cyanosis and no clubbing Skin: no rashes, warm and dry Neurologic: moves all extremities and awake; no focal motor deficits Psychiatric: A+Ox3, euthymic affect Lymphatic: no lymphedema Results & Data Results & Data ([facility]) Vital Signs (Past 12 Hours) Vital Signs Temp Pulse Resp BP BP Pulse Ox 05/12/21 19:32 36.3 C L 72 18 155/77 H 94 05/12/21 14:58 36.8 C 64 16 134/70 93 05/12/21 12:11 36.5 C 63 64 H 139/71 92 Laboratory Results 05/12/21 Range/Units 05:58 Creatinine 0.72 (0.6-1.4) mg/dl Est Cr Clr Drug Dosing 80.3 ml/min Est GFR ( Amer) 104.3 ml/min Est GFR (Non-Af Amer) 90.0 ml/min Diagnostic Findings Chest x-ray image personally reviewed by me and agree with the following report: Chest X-Ray 05/12/21 07:00 XR chest 1V portable CLINICAL HISTORY: Worsening hypoxia, Covid COMPARISON STUDY: Chest radiograph May 08, 2021. FINDINGS: Lung volumes are normal. Cardiac size is stable. There is no pneumothorax or pleural effusion. Bilateral airspace opacities have slightly progressed. Several of these are linear in configuration. IMPRESSION: Slight increase in bilateral airspace opacities. ACT 112: Negative or not required by law. Electronically signed by: Zechariah Granger M.D. 05/12/2021 8:30 AM PG Care Time/CCT Total # of Minutes Spent Total Time Spent with Patient: Total time spent is greater than 50% in coordination of care (as documented) at patient's floor/unit and/or counseling patient: Coding Level of Care Code 77878 Subseq Hosp Care Lvl 2 Diagnoses Pneumonia due to 2019 novel coronavirus U07.1; J12.82 Acute respiratory failure with hypoxia J96.01 Generalized weakness R53.1 Dehydration E86.0 Blindness H54.7
[2021-05-13] MEDS: DORZOLAMIDE/TIMOLOL 22.3/6.8MG/ML 10 ML BTL OPR SCH ×2 (08:46→20:05)
[2021-05-13] MEDS: BRIMONIDINE TARTRATE 0.2% 5ML OPR SCH ×3 (09:04→20:04)
[2021-05-13] MEDS: ENOXAPARIN INJ 40 MG/0.4 ML SYR SQ SCH ×2 (09:05→20:09)
[2021-05-13] MEDS: dexAMETHasone 6 MG in SYRINGE 0 ML IV SCH (09:09)
--- NOTE | 2021-05-13 18:33 | Hospitalist Progress Note ---
Date of Service May 13, 2021 Assessment & Plan (1) Pneumonia due to 2019 novel coronavirus: Plan: 76yo male presenting with Covid-19 infection, hypoxia to 89% on room air with ambulation upon arrival. Patient denies chest pain, cough, SOB. He is not vaccinated against Covid-19. He does have bibasilar minimal infiltrates on chest x-ray upon admission consistent with viral pneumonia Remains afebrile, hemodynamically stable, however his oxygen requirement jumped up quite a bit on 05/11 to 6 L but weaned down to 3 L nasal cannula by the end of the day on 05/13 He is eating and drinking well, no longer dehydrated, and is ambulating with physical therapy, feeling stronger -Continue on incentive spirometry -Encouraged prone/side positioning -Continue supplemental O2 as needed to maintain saturations >92% and wean off as tolerated-if worsens to greater than 10 L, would switch to high flow nasal cannula -Continue dexamethasone 6mg IV daily for 10-day course -Continue Lovenox 40mg BID for DVT prophylaxis and plan to send home with Xarelto 10 mg daily x35 days as per discussion with patient -Tylenol PRN -Zofran PRN -He is not a candidate for tocilizumab or Remdesivir (2) Acute respiratory failure with hypoxia: Plan: As above, improving today (3) Generalized weakness: Plan: Secondary to Covid-19 and febrile illness Much improved, ambulated with PT, feeling stronger PT and OT recommend stable for discharge to home with 24/7 care (4) Dehydration: Plan: Patient appears dehydrated both on laboratory findings as well as clinical exam upon admission. 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 Varghese of ophthalmology He does report significant worsening of his right eye vision since 04/27/2021. He attributes this to the fact that he has been fairly noncompliant with his eyedrops but has since restarted them. 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, but he asked me not to as he has been through this many times and feels that his vision will improve with time-he wishes to follow-up with ophthalmology as an outpatient Supportive care and assistance by caregivers here in the hospital to ensure he does not have any falls related to poor vision Plan: DVT Ppx - Lovenox 40 mg BID and plan to send home on Xarelto 10 mg daily x35 days as long as no issues with bleeding Code - Full Dispo -continued stay on medical unit of Covid unit, due to hypoxia, hopeful for discharge in 2 to 3 days when weaned off oxygen Discussed his care with his on the phone on 05/11 Admission and Anticipated Discharge Date Admission Date: May 09, 2021 Subjective Patient denies any problems, does not feel short of breath or have a cough. He is working on lying on his side at times but is flat on his back when he came in the room. I reminded him to go on his stomach or side. Denies chest pain or abdominal pain. He is eating and drinking. He does not want a get out of bed to a chair because he is worried he will not be able to find his belongings given his blindness. Review of Systems Review of Systems: All systems reviewed & are unremarkable except as noted in HPI & below Physical Exam Constitutional: WD/WN, vitals as above Neck: trachea midline, no thyromegaly Respiratory: normal respiratory effort, lungs clear to auscultation normal respiratory effort Auscultation: + crackles (Bibasilar) Cardiovascular: RRR, no murmur, no edema Chest (Breasts): Chest: normal inspection of chest Gastrointestinal (Abdomen): normal bowel sounds, soft, nontender, no hepatosplenomegaly Musculoskeletal: Extremities: extremities normal to inspection; no cyanosis and no clubbing Skin: no rashes, warm and dry Neurologic: moves all extremities and awake; no focal motor deficits Psychiatric: A+Ox3, euthymic affect Lymphatic: no lymphedema Results & Data Results & Data ([facility]) Vital Signs (Past 12 Hours) Vital Signs Temp Pulse Resp BP BP Pulse Ox 05/13/21 16:36 138/81 95 05/13/21 15:13 36.4 C L 70 17 173/95 H 94 PG Care Time/CCT Total # of Minutes Spent Total Time Spent with Patient: Total time spent is greater than 50% in coordinat ion of care (as documented) at patient's floor/unit and/or counseling patient: Coding Level of Care Code 29120 Subseq Hosp Care Lvl 2 Diagnoses Pneumonia due to 2019 novel coronavirus U07.1; J12.82 Acute respiratory failure with hypoxia J96.01 Generalized weakness R53.1 Dehydration E86.0 Blindness H54.7
[2021-05-13] MEDS: LATANOPROST 0.005% OP SOLN 2.5 ML BTL OPR SCH (20:04)
[2021-05-14 05:14] LABS: Basophils # (auto) 0.01 K/uL (0-0.2); Basophils % (auto) 0.1 %; Hematocrit (blood only) 42.9 % (42-52); Hemoglobin 14.5 g/dL (14.0-18.0); Immature Granulocytes # (auto) 0.17 K/uL (0.00-0.02); Immature Granulocytes % (auto) 2.2 %; Lymphocytes # (auto) 1.07 K/uL (1.2-3.4); Lymphocytes % (auto) 14.1 %; Mean Corpuscular Hemoglobin 30.5 pg (25-34); Mean Corpuscular Hgb Conc 33.8 g/dL (32-36); Mean Corpuscular Volume 90.3 fL (80-100); Mean Platelet Volume 9.2 fL (7.4-10.4); Monocytes # (auto) 0.77 K/uL (0.11-0.59); Monocytes % (auto) 10.2 %; Neutrophils # (auto) 5.56 K/uL (1.4-6.5); Neutrophils % (auto) 73.4 %; Platelet Count 297 K/uL (130-400); RDW Coefficient of Variation 13.6 % (11.5-14.5); RDW Standard Deviation 45.3 fL (36.4-46.3); Red Blood Count 4.75 M/uL (4.7-6.1); White Blood Count 7.58 K/uL (4.8-10.8)
[2021-05-14 05:46] LABS: Albumin Level 2.2 gm/dl (3.4-5.0); BUN Creatinine Ratio 38.9 (10-20); Calcium 8.4 mg/dl (8.5-10.1); Creatinine Clr Calc Pharmacy 90.4 ml/min; Est GFR (African American) 109.5 ml/min; Est GFR (Non-African American) 94.4 ml/min; Potassium 4.2 mmol/L (3.5-5.1)
[2021-05-14 05:50] LABS: Albumin Globulin Ratio 0.6 (0.9-2); Bilirubin,Total 0.5 mg/dl (0.2-1); C Reactive Protein 0.94 mg/dl (0-0.29); Globulin 3.5 gm/dl (2.5-4.0); Total Protein 5.7 gm/dl (6.4-8.2)
[2021-05-14] MEDS: ENOXAPARIN INJ 40 MG/0.4 ML SYR SQ SCH ×2 (09:00→20:29)
[2021-05-14] MEDS: DORZOLAMIDE/TIMOLOL 22.3/6.8MG/ML 10 ML BTL OPR SCH ×2 (09:00→20:29)
[2021-05-14] MEDS: dexAMETHasone 6 MG in SYRINGE 0 ML IV SCH (09:02)
[2021-05-14] MEDS: BRIMONIDINE TARTRATE 0.2% 5ML OPR SCH ×3 (09:05→20:29)
--- NOTE | 2021-05-14 13:52 | Hospitalist Progress Note ---
Date of Service May 14, 2021 Assessment & Plan (1) Pneumonia due to 2019 novel coronavirus: Plan: 76yo male presenting with Covid-19 infection, hypoxia to 89% on room air with ambulation upon arrival. Patient denies chest pain, cough, SOB. He is not vaccinated against Covid-19. He does have bibasilar minimal infiltrates on chest x-ray upon admission consistent with viral pneumonia Remains afebrile, hemodynamically stable, however his oxygen requirement jumped up quite a bit on 05/11 to 6 L but weaned down to 3 L nasal cannula by the end of the day on 05/13 Now weaned to room air at rest on 05/14, much improved He is eating and drinking well, no longer dehydrated, and is ambulating with physical therapy, feeling stronger -Continue on incentive spirometry -Encouraged prone/side positioning -Continue supplemental O2 as needed to maintain saturations >92%-currently weaned off -Continue dexamethasone 6mg IV daily for 10-day course -Continue Lovenox 40mg BID for DVT prophylaxis and plan to send home with Xarelto 10 mg daily x35 days as per discussion with patient -Tylenol PRN -Zofran PRN -He is not a candidate for tocilizumab or Remdesivir -likely can dc to home on Saturday (2) Acute respiratory failure with hypoxia: Plan: As above, now resolved (3) Generalized weakness: Plan: Secondary to Covid-19 and febrile illness Much improved, ambulated with PT, feeling stronger PT and OT recommend stable for discharge to home with 24/7 care (4) Dehydration: Plan: Patient appears dehydrated both on laboratory findings as well as clinical exam upon admission. 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 Magallon of ophthalmology He does report significant worsening of his right eye vision since 04/27/2021. He attributes this to the fact that he has been fairly noncompliant with his eyedrops but has since restarted them. 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 carrier operator, but he asked me not to as he has been through this many times and feels that his vision will improve with time-he wishes to follow-up with ophthalmology as an outpatient Supportive care and assistance by caregivers here in the hospital to ensure he does not have any falls related to poor vision (6) Transaminitis: Plan: AST and ALT up in 100s on 05/15 No abd pain, doing well most likely secondary to COVID-19 follow LFTs in AM Plan: DVT Ppx - Lovenox 40 mg BID and plan to send home on Xarelto 10 mg daily x35 days as long as no issues with bleeding Code - Full Dispo -continued stay on medical unit of Covid unit, likely discharge to home on Saturday Discussed his care with his on the phone on 05/11. Pt requested his be called to inform her of possible discharge on Saturday- unfortunately I did not have a chance to do this prior to it getting too late on Saturday evening. Can call her earlier in day on Saturday if doing well for discharge for her to make arrangements for transportation home. Admission and Anticipated Discharge Date Admission Date: May 09, 2021 Subjective Pt feeling well, eating and drinking, not SOB. He is now weaned down to room air by this afternoon. Review of Systems Review of Systems: All systems reviewed & are unremarkable except as noted in HPI & below Physical Exam Constitutional: WD/WN, vitals as above Eyes: very oblong left eye with cloudy cornea Neck: trachea midline, no thyromegaly Respiratory: normal respiratory effort, lungs clear to auscultation Cardiovascular: RRR, no murmur, no edema Chest (Breasts): Chest: normal inspection of chest Gastrointestinal (Abdomen): normal bowel sounds, soft, nontender, no hepatosplenomegaly Musculoskeletal: Extremities: extremities normal to inspection; no cyanosis and no clubbing Skin: no rashes, warm and dry Neurologic: moves all extremities and awake; no focal motor deficits Psychiatric: A+Ox3, euthymic affect Lymphatic: no lymphedema Results & Data Results & Data ([facility]) Vital Signs (Past 12 Hours) Vital Signs Temp Pulse Resp BP BP Pulse Ox 05/14/21 11:31 93 05/14/21 07:18 126/73 05/14/21 06:51 36.4 C L 60 14 162/84 H 93 Laboratory Results 05/14/21 05/14/21 Range/Units 04:45 04:45 WBC 7.58 (4.8-10.8) K/uL RBC 4.75 (4.7-6.1) M/uL Hgb 14.5 (14.0-18.0) g/dL Hct 42.9 (42-52) % MCV 90.3 (80-100) fL MCH 30.5 (25-34) pg MCHC 33.8 (32-36) g/dL RDW Std Deviation 45.3 (36.4-46.3) fL RDW Coeff of Татьяна 13.6 (11.5-14.5) % Plt Count 297 (130-400) K/uL MPV 9.2 (7.4-10.4) fL Immature Gran % (Auto) 2.2 % Neut % (Auto) 73.4 % Lymph % (Auto) 14.1 % Creek % (Auto) 10.2 % Eos % (Auto) 0.0 % Baso % (Auto) 0.1 % Neut # (Auto) 5.56 (1.4-6.5) K/uL Lymph # (Auto) 1.07 L (1.2-3.4) K/uL Creek # (Auto) 0.77 H (0.11-0.59) K/uL Eos # (Auto) 0.00 (0-0.5) K/uL Baso # (Auto) 0.01 (0-0.2) K/uL Immature Gran # (Auto) 0.17 H (0.00-0.02) K/uL Sodium 136 (136-145) mmol/L Potassium 4.2 (3.5-5.1) mmol/L Chloride 108 H (98-107) mmol/L Carbon Dioxide 24 (21-32) mmol/L Anion Gap 4.0 (3-11) BUN 25 H (7-18) mg/dl Creatinine 0.64 (0.6-1.4) mg/dl Est Cr Clr Drug Dosing 90.4 ml/min Est GFR ( Amer) 109.5 ml/min Est GFR (Non-Af Amer) 94.4 ml/min BUN/Creatinine Ratio 38.9 H (10-20) Glucose 103 H (70-99) mg/dl Calcium 8.4 L (8.5-10.1) mg/dl Total Bilirubin 0.5 (0.2-1) mg/dl AST 108 H (15-37) U/L ALT 170 H (12-78) U/L Alkaline Phosphatase 58 (45-117) U/L C-Reactive Protein 0.94 H (0-0.29) mg/dl Total Protein 5.7 L (6.4-8.2) gm/dl Albumin 2.2 L (3.4-5.0) gm/dl Globulin 3.5 (2.5-4.0) gm/dl Albumin/Globulin Ratio 0.6 L (0.9-2) PG Care Time/CCT Total # of Minutes Spent Total Time Spent with Patient: Total time spent is greater than 50% in coordination of care (as documented) at patient's floor/unit and/or counseling patient: Coding Level of Care Code 47974 Subseq Hosp Care Lvl 2 Diagnoses Pneumonia due to 2019 novel coronavirus U07.1; J12.82 Acute respiratory failure with hypoxia J96.01 Generalized weakness R53.1 Dehydration E86.0 Blindness H54.7 Transaminitis R74.01
[2021-05-14] MEDS: LATANOPROST 0.005% OP SOLN 2.5 ML BTL OPR SCH (20:30)
[2021-05-15 08:26] LABS: Creatinine Clr Calc Pharmacy 99.7 ml/min; Est GFR (Non-African American) 98.3 ml/min
[2021-05-15] MEDS: ENOXAPARIN INJ 40 MG/0.4 ML SYR SQ SCH (10:18)
[2021-05-15] MEDS: BRIMONIDINE TARTRATE 0.2% 5ML OPR SCH ×2 (10:18→16:15)
[2021-05-15] MEDS: DORZOLAMIDE/TIMOLOL 22.3/6.8MG/ML 10 ML BTL OPR SCH (10:18)
[2021-05-15] MEDS: dexAMETHasone 6 MG in SYRINGE 0 ML IV SCH (10:29)
--- NOTE | 2021-05-15 13:28 | Discharge Summary ---
Date of Service May 15, 2021 Admission HPI Per Admitting Provider Indio Key is a 76yo male presenting with 1 week of weakness, poor oral intake. endorses fever at home as well as a cough; although patient denies cough. Patient reports that he has no appetite - he has not eaten or drank anything for 1 week. states that he is very weak and having difficulty ambulating in the home. He had two possible falls (one 3 days ago and one 2 days ago). states that she heard a loud bang and found the patient on the floor. She also reports that he has had episodes of mild confusion over the last week. He reports a severe headache several days ago associated with decreased vision in his right eye. Patient is legally blind. No additional complaints at this time Patient tested POSITIVE for Covid-19 in the ER. He is not vaccinated against Covid-19. ER Course: 1L NSS, Dexamethasone 6mg IV, supplemental O2 Principal Diagnosis COVID 19 pneumonia, acute hypoxic respiratory failure Discharge Exam General: well developed, well nourished, no acute distress, comfortable Eyes: left eye deformed, right eye glassy, legally blind (glaucoma) Neck: supple, trachea midline, normal thyroid Lungs: clear to auscultation bilaterally, normal respiratory effort, no accessory muscle use, no distress Heart: regular S1 and S2, no murmur, peripheral pulses normal, capillary refill normal, no edema Abdomen: soft, NT, ND, + BS, no hepatomegaly, normal to percussion Extremities: normal in appearance, no cyanosis, no petechiae, strength is 5/5 bilaterally Neuro: awake, cooperative, moves all extremities, no focal motor deficits, CN II-XII intact, sensation in extremities intact, normal speech Skin: warm, dry, no rash, normal turgor Psych: Awake, alert oriented x 3, euthymic affect Discharge Data Allergies Allergy/AdvReac Type Severity Reaction Status Date / Time No Known Allergies Allergy Unverified 05/08/21 20:41 Consultations 05/08/21 23:47 ED Decision to Admit Stat Ordered Studies 05/08/21 20:36 CT head/brain wo con Urgent Hospital Course (1) Pneumonia due to 2019 novel coronavirus: 76yo male presenting with Covid-19 infection, hypoxia to 89% on room air with ambulation upon arrival. Patient denies chest pain, cough, SOB. He is not vaccinated against Covid-19. He does have bibasilar minimal infiltrates on chest x-ray upon admission consistent with viral pneumonia oxygen requirement peaked at 6L but quickly titrated down to 3L now down to room air 2 step this morning shows no need for oxygen at rest or on exertion He is eating and drinking well, no longer dehydrated, and is ambulating with physical therapy, feeling stronger -Continue on incentive spirometry -Encouraged prone/side positioning -treated with dexamethasone 6mg IV daily for 7 days, change to 6mg PO daily for 3 days -treated with Lovenox 40mg BID for DVT prophylaxis, send home with Xarelto 10 mg daily x35 days -Tylenol PRN -Zofran PRN -He was not a candidate for tocilizumab or Remdesivir discharge to home, lives with his , I discussed discharge with her (2) Acute respiratory failure with hypoxia: As above, now resolved 2 step shows no need for oxygen at rest or exertion (3) Generalized weakness: Secondary to Covid-19 and febrile illness Much improved, ambulated with PT, feeling stronger PT and OT recommend stable for discharge to home with 11/03 care his helps care for him (4) Dehydration: Patient appears dehydrated both on laboratory findings as well as clinical exam upon admission. 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 Magallon of ophthalmology He does report significant worsening of his right eye vision since 04/27/2021. He attributes this to the fact that he has been fairly noncompliant with his eyedrops but has since restarted them. 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, but he asked me not to as he has been through this many times and feels that his vision will improve with time-he wishes to follow-up with ophthalmology as an outpatient Supportive care and assistance by caregivers here in the hospital to ensure he does not have any falls related to poor vision (6) Transaminitis: AST and ALT up in 100s No abd pain, doing well most likely secondary to COVID-19 trending down discharge to home Total Time Total Time Spent Total Time Spent (In Minutes): 32 mninutes Total Time Includes: Examination of the Patient, Discharge Planning and Medication Reconciliation Discharge Plan Discharge Items Patient Disposition: Home - Self-Care Reason For Visit: COVID-19, HYPOXIA Discharge Diagnosis: COVID 19 pneumonia Acute hypoxic respiratory failure Condition on Discharge: Good Goals: complete course of dexamethasone stay well nourished, well hydrated, well rested Activity: Resume your previous activity Weightbearing: Full weightbearing Non-emergency contact: Primary Care Provider Call non-emergency contact if: you have any medication questions Follow-up/Referrals: Clark Singh MD [Primary Care Provider] - 05/22/21 11:15 am (VIRTUAL VISIT DUE TO + COVID) Diet: Regular Addtl Attending Provider Instructions: Medication: - DEXAMETHASONE: 6mg daily for three more days - XARELTO: 10mg daily for 35 days to help prevent blood clots associated with COVID 19 infection COVID 19 infection, responded well to treatment you are down to room air at rest and on exertion, expect you to continue to feel better over the next 2 weeks complete 3 more days of dexamethasone will prescribe Xarelto 10mg daily to prevent blood clots continue to increase activity, stay well nourished and well hydrated follow up virtual visit with Dr. Singh Pending Studies at Discharge: No Stand-Alone Forms: My [facility] [employer], Smoking Cessation Medications and DC Order Prescriptions: New dexamethasone 4 mg tablet 6 mg PO DAILY 3 Days Qty: 5 RF: 0 Xarelto 10 mg tablet 10 mg PO DAILY 35 Days Qty: 35 RF: 0 Continued latanoprost 0.005 % drops 1 drp OPR HS RF: 0 brimonidine 0.2 % drops 1 drp OPR TID RF: 0 dorzolamide-timolol 22.3-6.8 mg/mL drops 1 drp OPR BID RF: 0 Discharge Orders: Discharge Order (Routine); Ordered 05/15/21 Ordered By: Delmer Ibanez Admission Data Admit Date/Time: 05/09/21 00:38 Attending Provider: Delmer Ibanez Admit Provider: Tiffanie Tomlinson Primary Care Provider: Clark Singh Other Providers: Tiffanie Tomlinson Coding Level of Care Code D/C DAY MANAGEMENT >30 MINS Diagnoses Pneumonia due to 2019 novel coronavirus U07.1; J12.82 Acute respiratory failure with hypoxia J96.01 Generalized weakness R53.1 Dehydration E86.0 Blindness H54.7 Transaminitis R74.01
== END 2021-05-15 16:32 | disposition home or self-care (01) | DRG 177 ==
LOC: ED 16:28 → SUATTDRO 05-09 00:38 → 2S 05-09 00:38 → 3W 05-12 12:47